=== PATIENT | female | born 1955 | race Caucasian/White ===

== ENCOUNTER → 2016-10-26 | Outpatient (CLI) | payer OTHER ==
--- NOTE | 2016-10-26 10:44 | MA ---
Screening Digital Mammogram With Tomosynthesis and iCAD Indication: Routine screening. History of breast cancer on the paternal side of the family. Technique: Standard digital CC projections were obtained. Digital breast tomosynthesis was performed in the MLO projection with reconstruction at 1.0 mm slice thickness. Composite MLO views were recons tructed. This examination was processed by the iCAD computer-aided detection system. Comparison: September 2015, April 2014, February 2013 and December 2010 Breast density: Type B. Findings: CAD was reviewed. A focal asymmetry with minimal architectural distortion has increased in conspicuity in the lower inner left breast 7-8 o'clock position. The right mammograms are negative. Impression: Focal asymmetry with minimal architectural distortion versus dense superimposed tissue in the lower inner left breast 7-8 o'clock position. BI-RADS 0: Needs additional imaging evaluation. Recommendation: Left breast ultrasound of lower inner quadrant. [facility] will send a result letter to the patient. Negative mammography should not preclude additional workup of a clinically suspicious finding. The patient's information is entered into a reminder system with a target due date for her next mammo gram.
== END ==
LOC: FIMAGING 08:14
DX: Z12.31 Encounter for screening mammogram for malignant neoplasm of breast (principal); Z80.3 Family history of malignant neoplasm of breast
CPT/HCPCS: G0202

== ENCOUNTER → 2016-10-30 | Outpatient (CLI) | payer OTHER ==
--- NOTE | 2016-10-30 10:33 | US ---
Left Breast Ultrasound History: Evaluate asymmetry in the lower left breast noted on screening tomographic study October 26, 2016. Technique: Longitudinal and transverse images were obtained utilizing a 15 MHz transducer. Findings: No palpable abnormality is identified. In the inferior breast from the 6 to 8 o'clock posit ion normal glandular elements are identified. No solid or cystic mass is seen.. The mammographic asym metry is presumably normal glandular elements. Impression: Probably benign findings when considering mammographic and sonographic assessment, BI-RAD S 3. Recommendation: Six-month unilateral left breast mammographic follow up. Findings and follow-up recommendations were reviewed with the patient in detail. [facility] will send a result letter to the patient.
== END ==
LOC: FIMAGING 08:54
PROVIDERS: ATTEND Obstetrics & Gynecology
DX: Z12.39 Encounter for other screening for malignant neoplasm of breast (principal); R92.2 Inconclusive mammogram

== ENCOUNTER 2016-12-01 05:56 | Inpatient (IN) | payer OTHER ==
[2016-11-10 10:21] LABS: % IMMATURE GRANULYOCYTES 0.2 % (0.0-1.1); ABSOLUTE IMMATURE GRANULOCYTES 0.02 10^3/uL (0.00-0.10); ADD DIFF? NO; ADD MORPH? NO; ADD SCAN? NO; ATYPICAL LYMPHOCYTE FLAG 0 (0-99); FRAGMENT RBC FLAG 0 (0-99); HEMATOCRIT 43.4 % (38.0-47.0); HEMOGLOBIN 14.6 g/dL (12.6-16.3); LEFT SHIFT FLG 0 (0-99); LIPEMIA HEMOLYSIS FLAG 80 (0-99); MEAN CELL HEMOGLOBIN 28.8 pg (27.9-34.1); MEAN CELL HEMOGLOBIN CONCENTR. 33.6 g/dL (32.4-36.7); MEAN CELL VOLUME 85.6 fL (81.5-99.8); MEAN PLATELET VOLUME 9.9 fL (8.7-11.7); PLATELET CLUMPS FLAG 0 (0-99); PLATELET COUNT 197 10^3/uL (150-400); RED BLOOD CELL COUNT 5.07 10^6/uL (4.18-5.33)
[2016-11-10 10:46] LABS: ANION GAP 11 mEq/L (8-16); CALCIUM 9.9 mg/dL (8.5-10.4); CARBON DIOXIDE 27 mEq/l (22-31); CHLORIDE 101 mEq/L (97-110); CREATININE 0.8 mg/dL (0.6-1.0); GLOMERULAR FILTRATION RATE > 60; GLUCOSE 89 mg/dL (70-100); POTASSIUM 3.7 mEq/L (3.5-5.2); SODIUM 139 mEq/L (134-144)
[2016-12-01] MEDS ORDERED: CEFAZOLIN 2 GM/DEXTR 100 ML IV ONE (06:00)
[2016-12-01] MEDS ORDERED: DEXAMETHASONE 4 MG/ML VIAL IVP ONE (06:00)
[2016-12-01] MEDS ORDERED: ACETAMINOPHEN 325 MG TAB PO ONE (06:00)
[2016-12-01] MEDS ORDERED: ROPI/epiNEPH/KETOROLAC JOINT COCKTAIL IU ONE (06:00)
[2016-12-01] MEDS ORDERED: CHLORHEXIDINE GLUC HIBICLENS 118 ML BTL TP ONE (06:00)
[2016-12-01] MEDS ORDERED: FAMOTIDINE 20 MG TAB PO ONE (06:00)
[2016-12-01] MEDS ORDERED: TRANEXAMIC ACID 3,000 MG in NS 50 ML IRR ONE (06:00)
[2016-12-01] MEDS ORDERED: LIDOCAINE 2% 5 ML SDV ONE (06:15)
[2016-12-01] MEDS ORDERED: ceFAZolin 1 GM/5 ML SYR ONE (06:55)
[2016-12-01] MEDS ORDERED: MIDAZOLAM 2 MG/2 ML VIAL ONE (07:01)
[2016-12-01] MEDS ORDERED: fentaNYL 100 MCG/2 ML INJ ONE ×3 (07:12→10:19)
[2016-12-01] MEDS ORDERED: PROPOFOL/EMULSION 500 MG/50 ML BOTTLE IV ONE ×3 (07:16→08:18)
[2016-12-01] MEDS ORDERED: PROPOFOL 200 MG/20 ML VIAL ONE ×3 (07:40→09:12)
[2016-12-01] MEDS ORDERED: SYSTANE BALANCE OP PRN (09:29)
[2016-12-01] MEDS ORDERED: ALBUTEROL 60 PUFFS/8 GM MDI IH PRN (09:29)
[2016-12-01] MEDS ORDERED: SIMILASAN EYE EACHEYE PRN (09:29)
[2016-12-01] MEDS ORDERED: TEMAZEPAM 15 MG CAP PO PRN (09:37)
[2016-12-01] MEDS ORDERED: ONDANSETRON 4 MG/2 ML VIAL IVP PRN (09:37)
[2016-12-01] MEDS ORDERED: LACTULOSE 20 GM/30 ML UDCUP PO PRN (09:37)
[2016-12-01] MEDS ORDERED: PROMETHAZINE HCL 25 MG SUPPR PR PRN (09:37)
[2016-12-01] MEDS ORDERED: DIPHENOXYLATE/ATROPINE LOMOTIL 1 TAB PO PRN (09:37)
[2016-12-01] MEDS ORDERED: ONDANSETRON DISINTEGRATING 4 MG TAB PO PRN (09:37)
[2016-12-01] MEDS ORDERED: CYCLOBENZAPRINE 10 MG TAB PO PRN (09:37)
[2016-12-01] MEDS ORDERED: METOCLOPRAMIDE 10 MG/2 ML VIAL IVP PRN (09:37)
[2016-12-01] MEDS ORDERED: diphenhydrAMINE 25 MG CAP PO PRN (09:37)
[2016-12-01] MEDS ORDERED: MAGNESIUM HYDROXIDE 30 ML UDCUP PO PRN (09:37)
[2016-12-01] MEDS ORDERED: POLYETHYLENE GLYCOL 3350 17 GM PKT PO PRN (09:37)
[2016-12-01] MEDS ORDERED: oxyCODONE IR 5 MG TAB PO PRN (09:37)
[2016-12-01] MEDS ORDERED: BISACODYL 10 MG SUPP PR PRN (09:37)
--- NOTE | 2016-12-01 09:37 | POSTOPPROG ---
Post Op Note Date of Operation: 12/01/16 Surgeon: Arianne Kirby Waterproof Material Folder: Coleman Burkett Anesthesia: Spinal Pre-op Diagnosis: Left knee osteoarthritis Post-op Diagnosis: Left knee osteoarthritis Procedure: Left total knee arthroplasty Findings: As above, please see full dictation for details Inf/Abcess present in the surg proc area at time of surgery?: No Depth: Deep Incisional (Fascial) Complications: No complications. Drains: Yovany Rincon
[2016-12-01] MEDS ORDERED: PHARMACY PAIN CONSULT 1 EA MISC PRN (09:54)
[2016-12-01] MEDS ORDERED: LR 1,000 ML IV SCH ×2 (10:00)
[2016-12-01] MEDS ORDERED: TRANEXAMIC ACID IV ONE (10:00)
[2016-12-01] MEDS ORDERED: TRANEXAMIC ACID 600 MG in NS 100 ML IV ONE (10:00)
[2016-12-01] MEDS ORDERED: NS IV ONE (10:00)
[2016-12-01] MEDS ORDERED: MEPERIDINE 25 MG/ML SYR ONE (10:06)
--- NOTE | 2016-12-01 11:42 | GOP ---
[f rep st] OPERATIVE REPORT DATE OF OPERATION: 12/01/2016 SURGEON: Minna Kirby MD VALIDATION TECHNICIAN: Coleman Burkett. The use of a surgical training specialist was required for surgical exposure. ANESTHESIA: Spinal. PREOPERATIVE DIAGNOSIS: Severe osteoarthritis of the left knee. POSTOPERATIVE DIAGNOSIS: Severe osteoarthritis of the left knee. PROCEDURE PERFORMED: Left total knee arthroplasty. FINDINGS: INDICATIONS: This is a 60-year-old female with progressive and quite severe osteoarthritis of the left knee becoming increasingly disabled secondary to pain. She has failed nonoperative treatment. DESCRIPTION OF PROCEDURE: After an adequate spinal anesthetic was obtained and IV antibiotics were administered, the patient's left lower extremity was prepped and draped in the usual sterile fashion. The limb was exsanguinated with the Esmarch. Tourniquet elevated to 300 mmHg pressure. The [employer] leg holding device was utilized with adequate padding. A midline incision was placed over the left knee. Dissection was carried down through the subcutaneous tissue. Hemostasis was obtained using electrocautery. A medial arthrotomy was performed and the patella dislocated laterally. The joint was inspected. There was severe [id number] osteoarthritis involving the medial and patellofemoral compartments with mild to moderate disease laterally. The medial and lateral menisci as well as the ACL were sharply excised, as were osteophytes. The intramedullary canal of the distal femur was entered. The intramedullary distal femoral cutting jig was applied, 9 mm of distal femur was now resected in a 5-degree valgus alignment. The femur was sized to a #5 component. The anterior, posterior jig was applied in 3 degrees of external rotation parallel to the transepicondylar axis. The anterior and posterior cuts as well as the chamfer cuts were now performed in a routine fashion. The intramedullary tibia cutting jig was applied. Approximately 10 mm of proximal tibia was resected laterally, 1 to 2 mm medially , perpendicular to the long axis of the tibia with 3 degrees posterior slope preserving the posterior cruciate ligament. The tibia was sized to a 4 component. The patella was measured and 9 mm resected. This was sized with a 32 component and the patella lug holes were drilled. A trial reduction was now performed using a size 5 narrow femoral component. A 4 tibial base plate with an 11 mm insert and a 32 mm patellar component. This resulted in full extension and flexion. There was excellent varus valgus stability through a full range of motion. The knee was very well balanced. Patellar tracking was normal. The patellar lug holes were drilled and the proximal tibia prepared with a keel punch in a routine fashion. The first batch of cement was mixed. The tibial tray was now cemented in place. Excess cement was removed and the tray held firm while the cement hardened. A bone plug was placed in the distal femoral hole. A second batch of cement was mixed. The distal femoral and patellar surfaces were prepared with pulsatile lavage and the 5 narrow Oxinium femoral component impacted into place and the knee extended with an 11 mm trial insert. The 32 mm patellar component was cemented in place and held with a patellar clamp while the cement cured. Excess cement was removed. Again, a trial reduction was performed using the 11 mm insert. This resulted in full extension and flexion. Excellent varus valgus stability through a full range of motion with normal patellar tracking. After further copious irrigation with pulsatile lavage, the final 11 mm tibial insert was impacted into place and again, excellent range of motion and stability was confirmed. The tourniquet was deflated after 79 minutes tourniquet time. Hemostasis was obtained using electrocautery. A large drain was left in place intra- articularly. The median arthrotomy was closed using interrupted #2 FiberWire and #1 Vicryl sutures. Subcutaneous closure was performed using a #3-0 Vicryl suture and the skin closed using stainless steel quirino. A cocktail comprised of 80 mg of 0.2% ropivacaine, 1:100,000 0.2 mg of epinephrine and 30 mg of Ketoralac was injected. Sterile dressings were applied followed by an Robert wrap. There were no complications. The patient tolerated the procedure well and returned to the recovery room in stable condition. IMPLANTS UTILIZED: 1. Alex [employer]hew size 5 narrow left cruciate retaining Legion Oxinium femoral component. 2. [employer]hew size 4, Radha II left nonporous tubular base plate. 3. [employer]hew 32 mm, Radha II resurfacing patellar component. 4. [employer] size 4, 11 mm Legion CR XLPE high-flex articular insert. /[id number]/MODL MTDD
[2016-12-01] MEDS: ACETAMINOPHEN 325 MG TAB PO SCH ×3 (11:56→23:09)
[2016-12-01] MEDS ORDERED: traMADol 50 MG TAB ONE (13:45)
[2016-12-01] MEDS: traMADol 50 MG TAB PO PRN ×2 (13:50→20:34)
[2016-12-01] MEDS: ceFAZolin 2 GM/DEXTROSE 100 ML IV SCH ×2 (15:11→23:10)
[2016-12-01] MEDS: MONTELUKAST SODIUM 10 MG TAB PO SCH (20:34)
[2016-12-01] MEDS: BISOPROLOL/HCTZ 2.5/6.25MG 1 EACH TAB PO SCH (20:34)
[2016-12-01] MEDS: FAMOTIDINE 20 MG TAB PO SCH (20:34)
[2016-12-01] MEDS: SENNOSIDES/DOCUSATE SODIUM TAB PO SCH (20:35)
[2016-12-02] MEDS: traMADol 50 MG TAB PO PRN ×2 (02:29→20:36)
[2016-12-02 04:57] LABS: HEMATOCRIT 28.2 % (38.0-47.0); HEMOGLOBIN 9.8 g/dL (12.6-16.3)
[2016-12-02] MEDS: ACETAMINOPHEN 325 MG TAB PO SCH ×4 (06:04→23:50)
[2016-12-02] MEDS: BISOPROLOL/HCTZ 2.5/6.25MG 1 EACH TAB PO SCH ×2 (08:59→20:36)
[2016-12-02] MEDS: FAMOTIDINE 20 MG TAB PO SCH ×2 (09:00→20:36)
[2016-12-02] MEDS: SENNOSIDES/DOCUSATE SODIUM TAB PO SCH ×2 (09:00→20:36)
--- NOTE | 2016-12-02 10:12 | SOAPPROG ---
SOAP Progress Note Assessment/Plan: Assessment/Plan:s/p L TKA POD#1 - Continue PT/OT - Continue pain management - Continue ice to the L knee - Monitor drain output q6hrs - Zofran for vertigo - Monitor H&H - Continue SCDs/TEDs for mechanical prophylaxis - Continue warfarin for VTE chemoprophylaxis - Likely discharge tomorrow 12/02/16 10:09 12/02/16 10:15 Subjective: Pt states her pain has been well-controlled, but she was having hypotensive episodes yesterday with standing. Pt is also experiencing vertigo symptoms. Pt states she does have a history of vertigo and experienced these same symptoms after her last surgery. She usually gets relief of these symptoms with zofran and meclizine. Pt denies fever, chills, chest pain, SOB, abdominal pain, N/V/D, numbness, tingling and calf pain. Objective: Vital Signs Temp Pulse Resp BP Pulse Ox 36.8 C 79 14 137/78 H 96 12/02/16 04:00 12/02/16 07:51 12/02/16 07:51 12/02/16 07:51 12/02/16 07:51 Laboratory Results 12/02/16 04:20 11/10/16 10:05 12/01/16 12/02/16 12/03/16 05:59 05:59 05:59 Intake Total 3741 Output Total 2815 Balance 926 Physical Exam - Physical Exam General Appearance: alert, no apparent distress Peripheral Pulses: 2+: dorsalis-pedis (R), dorsalis-pedis (L) Skin: normal color, warm/dry, other (incision site L knee c/d/i; drain in place) Extremities: normal capillary refill, other (Left knee ROM limited by pain; able to ignite the left quadricep, but unable to perform a SLR. SCDs/TEDs in place B/L LE), No pedal edema, No calf tenderness, No swelling, No Elvia's sign Neuro/Psych: no motor/sensory deficits, alert, normal mood/affect ICD10 Worksheet Patient Problems: Problems Problem Status Onset Osteoarthritis of right knee Acute
[2016-12-02] MEDS ORDERED: MECLIZINE HCL 12.5 MG TAB PO PRN (12:09)
[2016-12-02] MEDS ORDERED: WARFARIN SODIUM 5 MG TAB PO SCH (16:00)
[2016-12-02] MEDS: MONTELUKAST SODIUM 10 MG TAB PO SCH (20:36)
[2016-12-02 23:37] VITALS: TEMP 98.7
[2016-12-03] MEDS: ACETAMINOPHEN 325 MG TAB PO SCH ×2 (05:05→12:33)
[2016-12-03 05:21] LABS: HEMATOCRIT 28.2 % (38.0-47.0); HEMOGLOBIN 9.7 g/dL (12.6-16.3)
[2016-12-03 08:27] VITALS: BP 149/82; RESP 16; O2SAT 94
[2016-12-03] MEDS: BISOPROLOL/HCTZ 2.5/6.25MG 1 EACH TAB PO SCH (08:31)
[2016-12-03] MEDS: FAMOTIDINE 20 MG TAB PO SCH (08:32)
[2016-12-03 08:36] VITALS: PULSE 75
[2016-12-03] MEDS: SENNOSIDES/DOCUSATE SODIUM TAB PO SCH (08:36)
[2016-12-03 09:26] LABS: INR 1.24 (0.83-1.16); PROTIME(PATIENT) 15.6 SEC (12.0-15.0)
--- NOTE | 2016-12-03 10:00 | SOAPPROG ---
SOAP Progress Note Assessment/Plan: Assessment/Plan:s/p L TKA POD#1 - Continue PT/OT - Continue pain management - Continue ice to the L knee - Drain was removed this am along with a dressing change - Continue SCDs/TEDs for mechanical prophylaxis - Continue warfarin for VTE chemoprophylaxis - Likely discharge today pending PT clearance - Follow-up with PCP as outpatient for BP 12/02/16 10:09 12/02/16 10:15 12/03/16 09:57 Subjective: Pt states she is doing better this morning and was able to get up yesterday with PT. Her vertigo seems to have subsided. Pt denies fever, chills, chest pain, SOB, abdominal pain, N/V/D, numbness, tingling, and calf pain. Objective: H&H stable, drain output minimal Vital Signs Temp Pulse Resp BP Pulse Ox 37.1 C 75 16 149/82 H 94 12/02/16 23:37 12/03/16 08:31 12/03/16 08:00 12/03/16 08:31 12/03/16 08:00 Laboratory Results 12/03/16 04:23 11/10/16 10:05 12/02/16 12/03/16 12/04/16 05:59 05:59 05:59 Intake Total 3741 800 Output Total 2815 3540 Balance 926 -2740 PT 15.6 SEC (12.0-15.0) H 12/03/16 08:58 INR 1.24 (0.83-1.16) H 12/03/16 08:58 Physical Exam - Physical Exam General Appearance: alert, no apparent distress Peripheral Pulses: 2+: dorsalis-pedis (R), dorsalis-pedis (L) Skin: normal color, warm/dry, other (incision site LLE c/d/i) Extremities: normal inspection, normal capillary refill, swelling (localized around the left knee), other (able to lift her left heel off the bed), No pedal edema, No calf tenderness, No Elvia's sign Neuro/Psych: no motor/sensory deficits, alert, normal mood/affect ICD10 Worksheet Patient Problems: Problems Problem Status Onset Osteoarthritis of right knee Acute
--- NOTE | 2016-12-03 13:20 | PDDCSUM ---
Discharge Summary Discharge Summary: 60y/o F was admitted 12/01/2016, to undergo a left total knee arthroplasty with Dr. Kirby. Pt was placed on IV antibiotics and antibiotics were continued for 24 hours post-operatively. Pt is on warfarin daily for VTE chemoprophylaxis and SCDs/TEDs for mechanical prophylaxis. Pt was evaluated by PT and OT. Pain was well-controlled. Hospital stay was otherwise uneventful.
[2016-12-03] MEDS ORDERED: WARFARIN SODIUM 5 MG TAB PO SCH (16:00)
== END 2016-12-03 15:48 | disposition home or self-care (01) | DRG 470 ==
LOC: F3N 05:56
PROVIDERS: ADMIT Orthopaedic Surgery Sports Medicine; ATTEND Orthopaedic Surgery Sports Medicine
PROC: 0SRD0J9 Replacement of Left Knee Joint with Synthetic Substitute, Cemented, Open Approach (ICD-10-PCS; principal; 2016-12-01 07:15)
DX: M17.12 Unilateral primary osteoarthritis, left knee (principal); J45.909 Unspecified asthma, uncomplicated
CPT/HCPCS: 97110-GP; 97116-GP; 97162-GP; 97165-GO; 97530-GP; C1713; J0171; J0690; J1100; J1885; J2250; J2704; J2795; J3010

== ENCOUNTER → 2017-05-25 | Outpatient (CLI) | payer OTHER | LOC: FIMAGING 10:03 | PROVIDERS: ATTEND Family Medicine | DX: Z12.39 Encounter for other screening for malignant neoplasm of breast (principal); R92.8 Other abnormal and inconclusive findings on diagnostic imaging of breast | CPT/HCPCS: G0206 ==

== ENCOUNTER → 2018-01-03 | Outpatient (CLI) | payer OTHER | LOC: FIMAGING 10:59 | PROVIDERS: ATTEND Family Medicine | DX: Z12.31 Encounter for screening mammogram for malignant neoplasm of breast (principal) ==

== ENCOUNTER 2018-06-30 06:15 | Observation (INO) | payer OTHER ==
[2018-06-30] MEDS ORDERED: LR 1,000 ML IV ONE (07:00)
--- NOTE | 2018-06-30 07:35 | PDANEPAE ---
ANE History of Present Illness Left parotidectomy ANE Past Medical History - Cardiovascular History Hx Hypertension: Yes Hx Arrhythmias: No Hx Chest Pain: No Hx Coronary Artery / Peripheral Vascular Disease: No Hx CHF / Valvular Disease: No Hx Palpitations: No Cardiovascular History Comment: pcp monitors bp medications - Pulmonary History Hx COPD: No Hx Asthma/Reactive Airway Disease: Yes Hx Recent Upper Respiratory Infection: No Hx Oxygen in Use at Home: No Hx Sleep Apnea: No Sleep Apnea Screening Result - Last Documented: Negative Pulmonary History Comment: asthma. RL lobectomy for CA - Neurologic History Hx Cerebrovascular Accident: No Hx Seizures: No Hx Dementia: No - Endocrine History Hx Diabetes: No - Renal History Hx Renal Disorders: No - Liver History Hx Hepatic Disorders: No Hepatic History Comment: NOT SURE IF SHE HAS GALL STONES - Neurological & Psychiatric Hx Hx Neurological and Psychiatric Disorders: No - Cancer History Hx Cancer: Yes Cancer History Comment: LUNG - Congenital Disorder History Hx Congenital Disorders: No Congenital History Comment: fragile X mutation - GI History Hx Gastrointestinal Disorders: Yes Gastrointestinal History Comment: INTERMITTENT HEARTBURN USES OTC NEEDED - Other Health History Other Health History: parotid gland "lump". wears reading glasses. tinitus - Chronic Pain History Chronic Pain: Yes (bilat knees) - Surgical History Prior Surgeries: Bilat TKA, 2015 (R), 2017 (L). Right lower lobectomy 2008. RT KNEE SCOPE. TIBIAL OSTEOATOMY RT KNEE. CHELITA SHLDR SCOPE. CHELITA ORIF FEMUR WITH POST HARDWARE REMVL. LT ANKLE REMVL CYST. TONSILLECTOMY ANE Review of Systems Review of systems is: negative Review of Systems: - Exercise capacity METS (RN): 4 METS ANE Patient History - Allergies Allergies/Adverse Reactions: bacitracin [From Neosporin (add-xyz-dycil)] Allergy (Verified 11/04/16 10:57) Rash bacitracin zinc [From Neosporin (qmd-mcg-wqdvh)] Allergy (Verified 11/04/16 10: 57) Rash Iodinated Contrast- Oral and IV Dye [Iodinated Contrast Media - IV Dye] Allergy (Verified 06/13/18 16:23) flu-like symptoms neomycin sulfate [From Neosporin (tcf-xhi-[id number])] Allergy (Verified 11/04/16 10: 57) Rash polymyxin B [From Neosporin (mon-qnm-aikvr)] Allergy (Verified 11/04/16 10:57) Rash - Home Medications Home Medications: Montelukast Sodium [Singulair 10 mg (*)] 04/09/15 [Last Taken 06/29/18] Bisoprolol-Hctz 2.5-6.25 mg Tb 06/13/18 [Last Taken 06/29/18] Calcium Magnesium + D Tablet 06/13/18 [Last Taken 06/29/18] Fish Oil Calimesa-3 Softgel 06/13/18 [Last Taken 06/23/18] Herbals/Supplements -Info Only 06/13/18 [Last Taken 06/29/18] Proair Hfa 06/13/18 [Last Taken 05/31/18] Retin-A 06/13/18 [Last Taken 06/28/18] Vitamin B Complex 06/13/18 [Last Taken 06/29/18] Vitamin B-2 06/13/18 [Last Taken 06/29/18] Vitamin B12 06/13/18 [Last Taken 06/29/18] Vitamin D3 06/13/18 [Last Taken 06/29/18] - NPO status NPO Since - Liquids (Date): 06/30/18 NPO Since - Liquids (Time): 04:30 NPO Since - Solids (Date): 06/29/18 NPO Since - Solids (Time): 23:00 - Smoking Hx Smoking Status: Never smoked - Family Anes Hx Family Hx Anesthesia Complications: fragile X carriers ANE Labs/Vital Signs - Vital Signs Blood Pressure: 140/79 Heart Rate: 76 Respiratory Rate: 16 O2 Sat (%): 99 Height: 160.02 cm Weight: 58.967 kg ANE Physical Exam - Airway Neck exam: FROM Mallampati Score: Class 1 Mouth exam: normal dental/mouth exam - Pulmonary Pulmonary: no respiratory distress, no rales or rhonchi - Cardiovascular Cardiovascular: regular rate and rhythym, no murmur, rub, or gallop ANE Anesthesia Plan Anesthesia Plan: general endotracheal anesthesia
[2018-06-30] MEDS ORDERED: SCOPOLAMINE HYDROBROMIDE 1 MG/3 DAYS PATCH TD ONE (07:36)
[2018-06-30] MEDS ORDERED: MIDAZOLAM 2 MG/2 ML VIAL ONE (07:37)
[2018-06-30] MEDS ORDERED: ceFAZolin 2 GM/DEXTROSE 100 ML IV ONE (07:37)
[2018-06-30] MEDS ORDERED: DEXAMETHASONE 4 MG/ML VIAL IVP ONE (07:37)
--- NOTE | 2018-06-30 07:38 | PDHPUP ---
History & Physical Update H&P update statement: This history and physical update is based on an assessment of the patient which was completed after admission or registration (within 24 hours), but prior to the surgery/procedure. H&P update: H&P reviewed & patient examined, no change in patient's condition since H&P completed
[2018-06-30] MEDS ORDERED: REMIFENTANIL HCL 1 MG VIAL ONE ×2 (07:46→09:01)
[2018-06-30] MEDS ORDERED: PROPOFOL/EMULSION 500 MG/50 ML BOTTLE IV ONE ×3 (07:46→09:01)
[2018-06-30] MEDS ORDERED: OXYCODONE/APAP 5/325 TAB PO PRN (07:54)
[2018-06-30] MEDS ORDERED: ONDANSETRON 4 MG/2 ML VIAL IVP PRN ×2 (07:54→10:23)
[2018-06-30] MEDS ORDERED: D5W 1/2 NS W/ 20 KCl/L 1,000 ML IV SCH (08:00)
--- NOTE | 2018-06-30 08:00 | POSTOPPROG ---
Post Op Note Date of Operation: 06/30/18 Surgeon: Arianne Ash Hairspring Staker: Rainer Anesthesiologist: Adriano Anesthesia: GET(General Endotracheal) Pre-op Diagnosis: left parotid mass Post-op Diagnosis: same Procedure: left superficial; parotidectomy Findings: left parotid mass Inf/Abcess present in the surg proc area at time of surgery?: No Depth: Deep Incisional (Fascial) EBL: Minimal Total fluids administered: 1000 Complications: none Drains: Hemovac Specimen(s): left parotid mass
[2018-06-30] MEDS ORDERED: LIDOCAINE/EPINEPHRINE 0.5% 50 ML MDV ONE (08:13)
[2018-06-30] MEDS ORDERED: LIDO/EPI 1% **for epidural** 30 ML SDV ONE (08:13)
[2018-06-30] MEDS ORDERED: ceFAZolin 1 GM VIAL ONE ×2 (08:53)
[2018-06-30] MEDS ORDERED: DEXAMETHASONE 4 MG/ML VIAL ONE (08:53)
[2018-06-30] MEDS ORDERED: PETROLAT,WHT/MIN OIL/SOD CHL 3.5 GM OPHT.OINT ONE (08:53)
[2018-06-30] MEDS ORDERED: ONDANSETRON 4 MG/2 ML VIAL ONE (09:38)
[2018-06-30] MEDS ORDERED: ePHEDrine SULFATE 25 MG/5 ML SYR ONE (09:38)
[2018-06-30] MEDS ORDERED: fentaNYL 100 MCG/2 ML INJ ONE ×2 (09:43→10:30)
[2018-06-30] MEDS ORDERED: ALBUTEROL 3 ML DEYVIAL IH PRN (10:23)
[2018-06-30] MEDS ORDERED: HYDROCODONE/APAP 5/325 TAB PO PRN (10:23)
[2018-06-30] MEDS ORDERED: ACETAMINOPHEN 500 MG TAB PO PRN (10:23)
[2018-06-30] MEDS ORDERED: oxyCODONE IR 5 MG TAB PO PRN (10:23)
[2018-06-30] MEDS ORDERED: HYDROmorphONE/DILAUDID 2 MG/ML INJ IVP PRN (10:23)
[2018-06-30] MEDS ORDERED: NALOXONE HCL 0.4 MG/ML INJ IVP PRN (10:23)
[2018-06-30] MEDS ORDERED: LABETALOL HCL 5 MG/ML 20 ML MDV ONE (10:30)
[2018-06-30] MEDS: fentaNYL 100 MCG/2 ML INJ IVP PRN ×2 (10:34→10:59)
[2018-06-30] MEDS: LABETALOL HCL 5 MG/ML 20 ML MDV IVP PRN ×2 (10:40→10:50)
[2018-06-30] MEDS ORDERED: oxyCODONE IR 5 MG TAB ONE (11:05)
--- NOTE | 2018-06-30 11:56 | POSTANESTH ---
Post Anesthetic Evaluation Cardiovascular Status: Normal, Stable Respiratory Status: Normal, Stable Level of Consciousness/Mental Status: Can Participate in Eval Pain Control: Adequate, Prn Tx Ordered Nausea/Vomiting Control: Adequate, Prn Tx Ordered Complications Possibly Related to Anesthesia: None Noted (Awake alert. No nausea. 23 hour obs. No GA problems)
[2018-06-30] MEDS: DEXAMETHASONE 4 MG/ML VIAL IVP SCH ×2 (13:42→22:10)
--- NOTE | 2018-06-30 17:23 | SOAPPROG ---
SOAP Progress Note Assessment/Plan: Assessment: pt with c/o mild pain BATISTA AVSS dressing dry and intact excellent left facial muscle movement stable post op Plan: 06/30/18 17:22 pt w Objective: Vital Signs Temp Pulse Resp BP Pulse Ox 36.9 C 93 16 129/73 H 95 06/30/18 14:46 06/30/18 14:46 06/30/18 14:46 06/30/18 14:46 06/30/18 14:46 06/29/18 06/30/18 07/01/18 05:59 05:59 05:59 Intake Total 1100 Output Total 15 Balance 1085 ICD10 Worksheet Patient Problems: Problems Problem Status Onset Osteoarthritis of right knee Acute
[2018-06-30] MEDS: ACETAMINOPHEN 325 MG TAB PO PRN (19:32)
[2018-07-01] MEDS: DEXAMETHASONE 4 MG/ML VIAL IVP SCH (06:18)
[2018-07-01] MEDS: ACETAMINOPHEN 325 MG TAB PO PRN (06:18)
[2018-07-01 07:41] VITALS: BP 119/78
--- NOTE | 2018-07-01 08:46 | PDDCSUM ---
Discharge Summary Discharge Summary: Patient POD #1 s/p excision left parotid mass by Dr. Ash She is doing well. Pain controlled. No concerns. AVSS. Facial movement intact Minimal output from drain. Incision c/d/i Drain removed, dressing replaced. Okay for discharge Reviewed post opt care Follow up in clinic next week.
--- NOTE | 2018-07-01 09:59 | ASDISCHSUM ---
Discharge Information Plan Status:Home with No Needs Medically Cleared to Leave:07/01/2018 Discharge Date:07/01/2018 CM D/C Disposition:Home, Routine, Self-Care ADT D/C Disposition:Home, Routine, Self-Care Projected Discharge Date:07/01/2018 Transportation at D/C: Discharge Delay Reason: Follow-Up Date:07/01/2018 Discharge Slot: Final Diagnosis: Placement Information Patient Contact Information Contact Name:CHARLES Relationship: Address:[address] City:[place] Alternate Phone: [facility]/Zip Code:[place] [address] Email: Financial Information Financial Class:HMO and PPO Plans Primary Plan Desc:[facility] Primary Plan Number:[id number] Secondary Plan Desc: Secondary Plan Number: Assessment Information LACE LACE Length of stay for Answers: 1 day current admission Acuity / Level of Answers: No Care: Did the patient have an inpatient admission? Comorbidities - select Answers: Opioid dependence all that apply / Chronic pain Other Notes: HTN; Asthma # of Emergency department Answers: 0 visits in the last 6 months Score: 6 Date Signed: 07/01/2018 09:58 AM Electronically Signed By:Alejandrina Oh RN Intervention Information
--- NOTE | 2018-07-04 18:47 | GOP ---
DATE OF OPERATION: 06/30/2018 SURGEON: Be Ash MD HEALTHCARE TECHNICIAN: Arron Spear MD. ANESTHESIA: General endotracheal. PREOPERATIVE DIAGNOSIS: Left parotid mass. POSTOPERATIVE DIAGNOSIS: PROCEDURE PERFORMED: Left superficial parotidectomy with facial nerve dissection and preservation. FINDINGS: Left parotid mass treated by left superficial parotidectomy with facial nerve dissection a nd preservation. ESTIMATED BLOOD LOSS: 30 mL. DESCRIPTION OF PROCEDURE: Patient was placed on the operating table in supine position. After induc tion of adequate general endotracheal anesthesia, a shoulder roll was placed beneath the patient's sh oulders to extend the neck. The patient's head was turned toward the right exposing the entire left face. The left face was prepped and draped in the standard manner for parotidectomy. Once this had been completed, the standard parotid incision was created passing anterior to the superior aspect of the auricle, then passing posterior to the tragus, then re-passing anterior and inferior to the lobul e, then curving in the infra-auricular ridge and to parallel the body of the mandible approximately 2 fingerbreadths inferior to the mandible. The incision was then carried down through the subcutaneou s tissues. Initially, a flap was elevated anteriorly in a layer superficial to the SMAS. Once this had been completed, the skin flap was sutured into position with 2-0 silk sutures. The ear lobule wa s sutured posteriorly. The parotid tissue was then reflected off the sternocleidomastoid. Dissectio n was then performed of the preauricular crease in the infra-auricular crease and as dissection proce eded deeper, the facial nerve was encountered. The facial nerve was then dissected further anteriorl y. The parotid tissues overlying the facial nerve were transected using the Bovie electrocautery. A s dissection proceeded further anteriorly, the bipolar electrocautery was used to divide the parotid tissue overlying the facial nerve, keeping the nerve under direct visualization. The parotid tissue was then sharply divided. Only limited dissection was necessary in the upper nerve branches. Dissec tion to the level of the pes anserinus was performed and dissection then proceeded further inferiorly . The inferior nerve branches were then dissected, and the tissue beneath the branches were treated with bipolar electrocautery and then sharply divided. As the parotid tissue was reflected further in feriorly, all facial nerve branches were identified and dissected carefully until the mass in the inf erior portion of the parotid was completely removed. During this time, a small rent occurred in the posterior facial vein. This was clamped, cut, and tied with a 3-0 silk tie. At this point, stimulat ion of the viejas facial nerve resulted in excellent movement of facial musculature. The skin flap w as then laid back into position. A [place] drain was placed deeply into the wound to act as a wound drain. A deep layer closure of the skin was performed utilizing interrupted 4-0 Vicryl sutures. The skin in the preauricular region was closed using running locked 5-0 rapid absorbing gut. 5-0 Prolen e running locked Prolene was used to close the infra-auricular portion of the wound. At this point, the wound was cleansed, and a sterile pressure dressing was applied. The patient was awakened, and t ransferred to the postanesthesia recovery area in stable condition. FLUIDS REPLACED: 900 mL. COMPLICATIONS: None. /[id number]/MODL
== END 2018-07-01 10:49 | disposition home or self-care (01) ==
LOC: F3N 06:15 → F3E 11:19
PROVIDERS: ADMIT Otolaryngology; ATTEND Otolaryngology
PROC: 0CT90ZZ Resection of Left Parotid Gland, Open Approach (ICD-10-PCS; principal; 2018-06-30 07:45)
DX: D11.0 Benign neoplasm of parotid gland (principal)
CPT/HCPCS: 42420; G0378; J0690; J1100; J2250; J2405; J2704; J3010

== ENCOUNTER → 2019-01-30 | Outpatient (CLI) | payer OTHER | LOC: FIMAGING 15:13 | PROVIDERS: ATTEND Family Medicine | DX: Z12.31 Encounter for screening mammogram for malignant neoplasm of breast (principal); Z80.3 Family history of malignant neoplasm of breast ==